=== PATIENT | male | born 1975 | race American Indian/Alaskan Native ===

== ENCOUNTER 2019-04-17 09:54 | Inpatient (IN) | payer OTHER ==
[2019-04-17 09:56] VITALS: BMI 33.1
[2019-04-17 11:52] LABS: BASO % 0.7 % (0.0-2.0); EOS # 0.1 K/uL (0.0-0.7); EOS % 1.5 % (0.0-4.0); HEMOGLOBIN 14.8 g/dL (12.0-18.0); LYMPH # 2.3 K/uL (1.0-4.3); MEAN CELL VOLUME 94.4 fL (80.0-94.0); MEAN CORPUSCULAR HEMOGLOBIN 32.4 pg (27.0-31.0); MEAN CORPUSCULAR HGB CONC 34.3 g/dL (33.0-37.0); MEAN PLATELET VOLUME 8.3 fL (7.2-11.7); MONO # 0.3 K/uL (0.0-0.8); MONO % 6.2 % (0.0-10.0); NEUT # 2.7 K/uL (1.8-7.0); NEUT % 49.6 % (50.0-75.0); NRBC % 0.1 % (0.0-2.0); RBC 4.56 Mil/uL (4.40-5.90); RED CELL DISTRIBUTION WIDTH 15.2 % (11.5-14.5); WHITE BLOOD COUNT 5.4 K/uL (4.8-10.8)
[2019-04-17 11:54] LABS: URINE BILIRUBIN NEGATIVE (NEGATIVE); URINE BLOOD NEGATIVE (NEGATIVE); URINE CLARITY Clear (Clear); URINE COLOR Yellow (YELLOW); URINE GLUCOSE (UA) NORMAL (Normal); URINE LEUKOCYTE ESTERASE NEG Leu/uL (Negative); URINE PROTEIN NEGATIVE (NEGATIVE); URINE UROBILINOGEN NORMAL mg/dL (0.2-1.0)
[2019-04-17 12:04] LABS: ALB/GLOB RATIO 1.6 (1.0-2.1); ALBUMIN 4.7 g/dL (3.5-5.0); ALT/SGPT 57 U/L (21-72); AST/SGOT 46 U/L (17-59); BLOOD UREA NITROGEN 15 mg/dL (9-20); CALCIUM 9.9 mg/dl (8.6-10.4); GFR NON-AFRICAN AMERICAN > 60
[2019-04-17 12:15] LABS: BARBITURATES, UR NEGATIVE (NEGATIVE); BENZODIAZEPINES, UR NEGATIVE (NEGATIVE); PHENCYCLIDINE, UR NEGATIVE (NEGATIVE)
[2019-04-17 12:44] LABS: OPIATES, UR POSITIVE (NEGATIVE)
[2019-04-17 14:51] VITALS: O2SAT 100
--- NOTE | 2019-04-17 15:16 | C.PDOC ---
History Of Present Illness 44 y/o male, with history of bipolar disorder, presents to ED stating he posted a message on [employer] [place] with a questionable homicidal post. Pt states that he has also been hearing voices. Reports his brother recently. Police was called and told him to come here to get help. He does admit to homicidal ideation but no SI. Time Seen by Provider: 04/17/19 10:12 Chief Complaint (Nursing): Psychiatric Evaluation History Per: Patient History/Exam Limitations: no limitations Onset/Duration Of Symptoms: Hrs Current Symptoms Are (Timing): Still Present Past Medical History Reviewed: Historical Data, Nursing Documentation, Vital Signs Vital Signs: Last Vital Signs Temp 97.9 F 04/17/19 14:50 Pulse 80 04/17/19 14:50 Resp 19 04/17/19 14:50 BP 133/90 04/17/19 14:50 Pulse Ox 100 04/17/19 14:50 Primary Care Provider: FAMILY PROVIDER,NO - Medical History PMH: Bipolar Disorder, Depression, HTN, Sleep Apnea Family History: States: No Known Family Hx - Social History Hx Tobacco Use: Yes Hx Alcohol Use: No Hx Substance Use: Yes - Immunization History Hx Tetanus Toxoid Vaccination: Yes Hx Influenza Vaccination: No Hx Pneumococcal Vaccination: No Review Of Systems Except As Marked, All Systems Reviewed And Found Negative. Constitutional: Negative for: Fever, Chills Psych: Positive for: Other (Homicidal ideation). Negative for: Psychosis, Suicidal ideation Physical Exam - Physical Exam Appears: Non-toxic, No Acute Distress Skin: Warm, Dry, No Rash Head: Atraumatic, Normacephalic Eye(s): bilateral: Normal Inspection, PERRL, EOMI Oral Mucosa: Moist Throat: No Erythema, No Exudate Neck: Normal ROM, Supple Chest: Symmetrical, No Tenderness Cardiovascular: Rhythm Regular, No Friction Rub, No Murmur Respiratory: Normal Breath Sounds, No Rhonchi, No Wheezing Gastrointestinal/Abdominal: Soft, No Tenderness Extremity: Normal ROM, No Tenderness, No Swelling Extremity: Bilateral: Atraumatic, Normal ROM Neurological/Psych: Oriented x3, Normal Speech ED Course And Treatment - Laboratory Results Result Diagrams: 04/17/19 11:40 04/17/19 11:40 Lab Results: Total Bilirubin 0.5 mg/dL (0.2-1.3) 04/17/19 11:40 AST 46 U/L (17-59) 04/17/19 11:40 ALT 57 U/L (21-72) 04/17/19 11:40 Alkaline Phosphatase 94 U/L (38-126) 04/17/19 11:40 Total Protein 7.6 g/dL (6.3-8.3) 04/17/19 11:40 Albumin 4.7 g/dL (3.5-5.0) 04/17/19 11:40 Globulin 2.9 gm/dL (2.2-3.9) 04/17/19 11:40 Albumin/Globulin Ratio 1.6 (1.0-2.1) 04/17/19 11:40 Urine Color Yellow (YELLOW) 04/17/19 11:40 Urine Clarity Clear (Clear) 04/17/19 11:40 Urine pH 5.0 (5.0-8.0) 04/17/19 11:40 Ur Specific [place] 1.024 (1.003-1.030) 04/17/19 11:40 Urine Protein Negative mg/dL (NEGATIVE) 04/17/19 11:40 Urine Glucose (UA) Normal mg/dL (Normal) 04/17/19 11:40 Urine Ketones Negative mg/dL (NEGATIVE) 04/17/19 11:40 Urine Blood Negative (NEGATIVE) 04/17/19 11:40 Urine Nitrate Negative (NEGATIVE) 04/17/19 11:40 Urine Bilirubin Negative (NEGATIVE) 04/17/19 11:40 Urine Urobilinogen Normal mg/dL (0.2-1.0) 04/17/19 11:40 Ur Leukocyte Esterase Neg [place]/uL (Negative) 04/17/19 11:40 Urine WBC (Auto) < 1 /hpf (0-5) 04/17/19 11:40 Urine RBC (Auto) < 1 /hpf (0-3) 04/17/19 11:40 O2 Sat by Pulse Oximetry: 100 (RA) Pulse Ox Interpretation: Normal Medical Decision Making Medical Decision Making: Plan: --Labs --UA The patient is medically cleared Disposition - Disposition Disposition: HOSPITALIZED Disposition Time: 17:57 Condition: STABLE - POA Present On Arrival: None - Clinical Impression Clinical Impression: Schizoaffective disorder - PA / DEWAXER / Resident Statement / has reviewed & agrees with the documentation as recorded. - Scribe Statement The provider has reviewed the documentation as recorded by the Scribe Claire Novak All medical record entries made by the Bayronibumberto were at my direction and personally dictated by me. I have reviewed the chart and agree that the record accurately reflects my personal performance of the history, physical exam, medical decision making, and the department course for this patient. I have also personally directed, reviewed, and agree with the discharge instructions and disposition.
--- NOTE | 2019-04-17 20:18 | PCM.BM ---
<Stefano Mosqueda - Last Filed: 04/17/19 20:16> Treatment Plan Problems - Problems identified on initial assessmt auditory hallucinations Date Initiated: 04/17/19 Time Initiated: 20:16 Assessment reference: NA Status: Active altered thought process Date Initiated: 04/17/19 Time Initiated: 20:18 Assessment reference: NA Status: Active ineffective family coping: compromised Date Initiated: 04/17/19 Time Initiated: :19 Assessment reference: NA Status: Active Treatment assets and liabiliti Patient Assests: cooperative, educated, self-reliant, ADL independent, good support system, good interpersonal skills Patient Liabilities: relationship conflicts - Milieu Protocol Maintain good personal hygiene: daily Encourage regular showers, daily Remind patient to perform daily oral care, daily Assist patient to perform ADL's Conduct patient checks and document Observation sheet: Q15 minutes Maintain personal safety: every shift Educate patient to report safety concerns to staff, every shift Monitor environment for contraband/sharps Medication safety: Monitor for expected outcome, potential side effects: every shift, Assess barriers to learning: every shift, Assess readiness for medication education: every shift <Tim Garcia - Last Filed: 04/19/19 10:54> - Diagnosis (1) Schizoaffective disorder Status: Acute Interventions: 04/19/19 10:53 * Assess/adjust medications daily and /or as needed * See patient on an individual basis 7x/week to assess status of hallucinations * Discuss risks, benefits, side effects and alternatives of medications * (2) Cannabis use disorder, severe, dependence Status: Acute Interventions: 04/19/19 10:54 * Assess 7x/week regarding severity of withdrawal * Educate regarding risks, benefits, side effects and alternatives of medications * Use Motivational Interviewing for abstinence * Use CBT for relapse prevention * Medication management for withdrawal symptoms * Encourage medication assisted treatment * <Emilia Lassiter - Last Filed: 04/19/19 12:34> Family Contact Family involvement: Family/SO is involved Family contact: Patient declines to allow family contact at present - Goals for Treatment Patient goals for treatment: "I don't know." Discharge/Continuing Care - Education Needs Education Needs: Patient Medication, Patient Coping Skills - Discharge Discharge Criteria: Tolerates medication w/o severe side effects, Reduction of target symptoms Discharge to:: Home - Treatment Team Participation Discussed with Family/SO: No Was Patient/Family/SO present at Treatment Team Meeting: Yes
--- NOTE | 2019-04-18 11:05 | PCM.PSYCH ---
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 Patient appears very disorganized and internally preoccupied throughout the interview. He reported that he called the police yesterday to explain that somebody has inflicted psychological harm on him. Patient remained internally preoccupied and he was responding to internal stimuli throughout the interview. He continued to have loose associations. He reports that he is very disappointed and on his sister's and he has homicidal ideation towards him. Patient reported that he does not have a plan for hurting his two sisters and their daughters and his cousins. When asked the reason, he stated that they are working together to fraudently obtain money from his brother's life insurance. He reports history of multiple inpatient psychiatric hospitalizations. He also reports history of follow-up with a psychiatrist, last follow-up was more than 5 years ago. He reports that he is done with his medications he does not want to take medication because his medications have changed his body. He is very paranoid and delusional throughout the interview. He reports that he noticed that 'the black cars are laughing at him.' He believes that, his family is doing the Medicaid fraud.' Patient also expressed that he made specific comments on Facebook that were not appropriate including "I would have an entire army rape you until your vaginas and your colons fell out." Patient expressed that he felt "I was losing touch with reality." He reports racing thoughts, irritability, agitation, and anger. He also reports at times depressed mood, feelings of hopelessness and helplessness, poor sleep and poor appetite. Urine toxicology was positive for cannabinoids, amphetamines, and opiods. However patient admits of abusing only marijuana. Past medical history Sleep apnea, HTN, arthritis. Current Medications: Active Medications Generic Name Dose Route Start Last Admin Trade Name Freq PRN Reason Stop Dose Admin Hydroxyzine HCl 25 mg 04/17/19 18:51 04/17/19 23:34 Atarax PO 25 mg Q6 PRN Administration Anxiety Ibuprofen 600 mg 04/17/19 19:01 Motrin Tab PO Q6H PRN Pain, moderate (4-7) Trazodone HCl 50 mg 04/17/19 18:55 04/17/19 23:34 Desyrel PO 50 mg HS PRN Administration Sleep Past Psychiatric History - Past Psychiatric History Previous Treatment History: Inpatient Pertinent Medical Hx (Current Medical&Sleep Prob, Allergies): Allergies Allergy/AdvReac Type Severity Reaction Status Date / Time iodine Allergy Verified 04/17/19 10:10 SEAFOOD Allergy Uncoded 04/17/19 10:10 QUEtiapine [SEROquel] 200 mg PO HS 10/17/15 Ibuprofen [Motrin Tab] 600 mg PO Q8 #30 tab 08/05/16 Lidocaine 5% [Lidoderm] 1 patch TP DAILY #30 patch 08/05/16 diaZEpam [Valium] 2 mg PO TID #15 tab 08/05/16 oxyCODONE/Acetaminophen [Percocet 5/325 mg Tab] 1 tab PO QID PRN #20 tab 08/05/16 Review of Systems - Review of Systems All systems: reviewed and no additional remarkable complaints except - Psychiatric Psychiatric: Anxiety, Auditory Hallucinations, Homicidal Ideation, Irritability, Paranoia Mental Status Examination - Personal Presentation Personal Presentation: Looks stated age - Affect Affect: Broad - Motor Activity Motor Activity: Psychomotor Agitation - Reliability in Providing Information Reliability in Providing Information: Poor, due to alteration in thoughts, Poor, due to altered mood - Speech Speech: Disorganized - Mood Mood: Anxious - Formal Thought Process Formal Thought Process: Hallucinations, Delusions, Paranoia, Loosening of associations, Flight of ideas, Circumstantial - Hallucinations/Delusions Hallucinations: Visual, Auditory Delusions: Persecution - Obsessions/Compulsions Obsessions: No Compulsions: No - Cognitive Functions Orientation: Person, Place, Situation, Time Sensorium: Alert Attention/Concentration: Attentive Abstract Thinking: [place] Estimate of Intelligence: Below average Judgement: Imparied, as evidence by: Poor judgement, Imparied, as evidence by: Lack of insight into illness - Risk Risk: Homicidal, Diminished functioning - Strength & Assets Inventory Strength & Assets Inventory: Family support DSM 5 DX - DSM 5 DSM 5 Diagnosis: Schizo affective disorder bipolar type Opioid use disorder mild Cannabis use disorder severe - Recommended/Plan of Treatment Treatment Recommendations and Plan of Treatment: Schizo affective disorder bipolar type Opioid use disorder mild Cannabis use disorder severe CBT Psychoeducation and supportive therapy and group therapy Prolixin for psychosis Cogentin for EPS Depakote for the mood stabilization Trazodone for insomnia Ativan for severe anxiety Hydroxyzine for anxiety Klonopin for agitation
[2019-04-18] MEDS: Divalproex 250 mg DR Tab PO SCH (17:09)
--- NOTE | 2019-04-19 10:52 | PCM.PYCHPN ---
Psychiatric Progress Note - Psychiatric Progress Note Patient seen today, length of contact: 15 min Patient Chief Complaint: I have thoughts of hurting my family.' Problems Identified/Issues Discussed: Patient was seen and evaluated, chart reviewed and discussed the staff. As per staff patient remain isolative and withdrawn. He remained disorganized and internally preoccupied. He still appears disheveled and unkempt. He continues to have loose associations and paranoia. He is taking selective medications and denies any side effects. He needs to stay longer for the stabilization of the symptoms. Supportive therapy was provided Medication Change: Yes Medical Record Reviewed: Yes Mental Status Examination - Cognitive Function Orientation: Person, Place, Situation, Time Memory: Intact Attention: WNL Concentration: Poor Association: Loose Fund of Knowledge: Poor - Mood Mood: Anxious - Affect Affect: Broad - Speech Speech: Pressured - Formal Thought Process Formal Thought Process: Hallucinations, Delusions, Paranoia, Loosening of associations, Flight of ideas, Circumstantial - Suicidal Ideation Suicidal Ideation: No - Homicidal Ideation Homicidal Ideation: No Goal/Treatment Plan - Goal/Treatment Plan Need for Continued Stay: Remain at risks for inpatient hospitalization Progress Toward Problem(s) and Goals/Treatment Plan: Schizo affective disorder bipolar type Opioid use disorder mild Cannabis use disorder severe CBT Psychoeducation and supportive therapy and group therapy Prolixin for psychosis Cogentin for EPS Depakote for the mood stabilization Trazodone for insomnia Ativan for severe anxiety Hydroxyzine for anxiety Klonopin for agitation
[2019-04-19] MEDS: Divalproex 250 mg DR Tab PO SCH ×2 (11:00→17:18)
[2019-04-20 06:05] VITALS: RESP 18
[2019-04-20] MEDS: Divalproex 250 mg DR Tab PO SCH (09:02)
[2019-04-21 06:08] VITALS: BP 101/67; PULSE 64; TEMP 97.5
--- NOTE | 2019-04-21 09:47 | PCM.PYCHDC ---
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 Patient appears very disorganized and internally preoccupied throughout the interview. He reported that he called the police yesterday to explain that somebody has inflicted psychological harm on him. Patient remained internally preoccupied and he was responding to internal stimuli throughout the interview. He continued to have loose associations. He reports that he is very disappointed and on his sister's and he has homicidal ideation towards him. Patient reported that he does not have a plan for hurting his two sisters and their daughters and his cousins. When asked the reason, he stated that they are working together to fraudently obtain money from his brother's life insurance. He reports history of multiple inpatient psychiatric hospitalizations. He also reports history of follow-up with a psychiatrist, last follow-up was more than 5 years ago. He reports that he is done with his medications he does not want to take medication because his medications have changed his body. He is very p aranoid and delusional throughout the interview. He reports that he noticed that 'the black cars are laughing at him.' He believes that, his family is doing the Medicaid fraud.' Patient also expressed that he made specific comments on Facebook that were not appropriate including "I would have an entire army rape you until your vaginas and your colons fell out." Patient expressed that he felt "I was losing touch with reality." He reports racing thoughts, irritability, agitation, and anger. He also reports at times depressed mood, feelings of hopelessness and helplessness, poor sleep and poor appetite. Urine toxicology was positive for cannabinoids, amphetamines, and opiods. However patient admits of abusing only marijuana. Consultations:: List each consultation separately and include: 1. Reason for request. 2. Findings. 3. Follow-up Summary of Hospital Course include:: 1. Description of specific treatment plan utilized for patients during their course of treatmen. 2. Summarize the time- course for resolution of acute symptoms and/or regressed behaviors. 3. Describe issues identified and worked on during hospitalization. 4. Describe medication utilized. 5. Describe medical problems identified and treated. 6. 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 Patient appears very disorganized and internally preoccupied throughout the interview. He reported that he called the police yesterday to explain that somebody has inflicted psychological harm on him. Patient remained internally preoccupied and he was responding to internal stimuli throughout the interview. He continued to have loose associations. He reports that he is very disappointed and on his sister's and he has homicidal ideation towards him. Patient reported that he does not have a plan for hurting his two sisters and their daughters and his cousins. When asked the reason, he stated that they are working together to fraudently obtain money from his brother's life insurance. He reports history of multiple inpatient psychiatric hospitalizations. He also reports history of follow-up with a psychiatrist, last follow-up was more than 5 years ago. He reports that he is done with his medications he does not want to take medication because his medications have changed his body. He is very paranoid and delusional throughout the interview. He reports that he noticed that 'the black cars are laughing at him.' He believes that, his family is doing the Medicaid fraud.' Patient also expressed that he made specific comments on Facebook that were not appropriate including "I would have an entire army rape you until your vaginas and your colons fell out." Patient expressed that he felt "I was losing touch with reality." He reports racing thoughts, irritability, agitation, and anger. He also reports at times depressed mood, feelings of hopelessness and helplessness, poor sleep and poor appetite. Urine toxicology was positive for cannabinoids, amphetamines, and opiods. However patient admits of abusing only marijuana. Past medical history Sleep apnea, HTN, arthritis. - Diagnosis (1) Schizoaffective disorder Current Visit: Yes Status: Acute (2) Cannabis use disorder, severe, dependence Current Visit: Yes Status: Acute - Final Diagnosis (DSM 5) Condition upon Discharge: STABLE DSM 5: Schizo affective disorder bipolar type Opioid use disorder mild Cannabis use disorder severe Disposition: HOME/ ROUTINE Follow-up Treatment Plan: Schizo affective disorder bipolar type Opioid use disorder mild Cannabis use disorder severe CBT Psychoeducation and supportive therapy and group therapy Prolixin for psychosis Cogentin for EPS Depakote for the mood stabilization Trazodone for insomnia Ativan for severe anxiety Hydroxyzine for anxiety Klonopin for agitation Prescriptions/Medication Reconciliation: Benztropine [Cogentin] 1 mg PO BID #60 tab fluPHENAZine [Prolixin] 10 mg PO BID #60 tab traZODone [Desyrel] 100 mg PO HS PRN #30 tab PRN Reason: Sleep - Smoking Cessation Smoking Cessation Medication prescribed: No - Antipsychotic Medications Pt discharged on 2 or more routine antipsychotic medications: No
== END 2019-04-21 10:08 | disposition home or self-care (01) | DRG 885 ==
LOC: C.ER 09:54 → C.5E 16:43
PROVIDERS: ADMIT Psychiatry & Neurology Psychiatry; ATTEND Psychiatry & Neurology Psychiatry
PROC: GZHZZZZ Group Psychotherapy (ICD-10-PCS; principal; 2019-04-17)
PROC: HZ52ZZZ Individual Psychotherapy for Substance Abuse Treatment, Cognitive-Behavioral (ICD-10-PCS; 2019-04-17)
PROC: HZ59ZZZ Individual Psychotherapy for Substance Abuse Treatment, Supportive (ICD-10-PCS; 2019-04-17)
PROC: HZ56ZZZ Individual Psychotherapy for Substance Abuse Treatment, Psychoeducation (ICD-10-PCS; 2019-04-17)
PROC: HZ42ZZZ Group Counseling for Substance Abuse Treatment, Cognitive-Behavioral (ICD-10-PCS; 2019-04-17)
PROC: HZ46ZZZ Group Counseling for Substance Abuse Treatment, Psychoeducation (ICD-10-PCS; 2019-04-17)
PROC: GZ58ZZZ Individual Psychotherapy, Cognitive-Behavioral (ICD-10-PCS; 2019-04-17)
PROC: GZ56ZZZ Individual Psychotherapy, Supportive (ICD-10-PCS; 2019-04-17)
DX: F25.0 Schizoaffective disorder, bipolar type (principal); R45.850 Homicidal ideations; F12.20 Cannabis dependence, uncomplicated; F11.10 Opioid abuse, uncomplicated; F41.9 Anxiety disorder, unspecified; G47.00 Insomnia, unspecified; G47.30 Sleep apnea, unspecified; I10 Essential (primary) hypertension; Z87.891 Personal history of nicotine dependence

== ENCOUNTER 2019-04-28 23:33 | Emergency (ER) | payer OTHER ==
[2019-04-28 23:34] VITALS: BMI 33.1
[2019-04-28 23:49] VITALS: BP 129/91; PULSE 74; TEMP 98.2; O2SAT 97
[2019-04-29] MEDS ORDERED: Lidocaine 5% Patch TD STA
[2019-04-29] MEDS ORDERED: Lidocaine 5% Patch TD ONE (00:05)
--- NOTE | 2019-04-29 00:05 | C.PDOC ---
Time Seen by Provider: 04/28/19 23:54 Chief Complaint (Nursing): Hip Pain Past Medical History Vital Signs: Last Vital Signs Temp 98.2 F 04/28/19 23:38 Pulse 74 04/28/19 23:38 Resp 16 04/28/19 23:38 BP 129/91 H 04/28/19 23:38 Pulse Ox 97 04/28/19 23:38 Primary Care Provider: Leonarda Lott - Medical History PMH: Bipolar Disorder, Depression, HIV (+ HIV), HTN, Sexually Transmitted Disease, Sleep Apnea Denies: Diabetes, Hepatitis, Seizures - [facility] Procedures [facility] FOR SUBSTANCE ABUSE TREATMENT, PSYCHOEDUCATION (04/17/19) GROUP RN HOSPITAL FOR SUBSTANCE ABUSE, COGNITIVE BEHAVIORAL (04/17/19) GROUP PSYCHOTHERAPY (04/17/19) INDIV PSYCHOTHERAPY FOR SUBSTANCE ABUSE TREATMENT, SUPPORT (04/17/19) INDIV PSYCHOTHERAPY FOR SUBSTANCE ABUSE, COGNITIV BEHAVIORAL (04/17/19) INDIV PSYCHOTHERAPY FOR SUBSTANCE ABUSE, PSYCHOEDUCATION (04/17/19) INDIVIDUAL PSYCHOTHERAPY, COGNITIVE-BEHAVIORAL (04/17/19) INDIVIDUAL PSYCHOTHERAPY, SUPPORTIVE (04/17/19) - Social History Hx Tobacco Use: Yes Hx Alcohol Use: Yes Hx Substance Use: Yes - Immunization History Hx Tetanus Toxoid Vaccination: Yes Hx Influenza Vaccination: No Hx Pneumococcal Vaccination: No ED Course And Treatment O2 Sat by Pulse Oximetry: 97 Disposition - Disposition
--- NOTE | 2019-04-29 00:18 | C.PDOC ---
History Of Present Illness 44 y/o male comes to ed for left hip pain with known diagnosis via mri on 04/15/19 of labrum tear. pt sts 'i want surgery'. I explained that he needs to be seen by an orthopedist for that, but can give him something for pain. Time Seen by Provider: 04/28/19 23:54 Chief Complaint (Nursing): Hip Pain Past Medical History Vital Signs: Last Vital Signs Temp 98.2 F 04/28/19 23:38 Pulse 74 04/28/19 23:38 Resp 16 04/28/19 23:38 BP 129/91 H 04/28/19 23:38 Pulse Ox 97 04/28/19 23:38 Primary Care Provider: Leonarda Lott - Medical History PMH: Bipolar Disorder, Depression, HIV (+ HIV), HTN, Sexually Transmitted Disease, Sleep Apnea Denies: Diabetes, Hepatitis, Seizures - [facility] Procedures GROUP [facility] FOR SUBSTANCE ABUSE TREATMENT, PSYCHOEDUCATION (04/17/19) GROUP CONCERT [facility] FOR SUBSTANCE ABUSE, COGNITIVE BEHAVIORAL (04/17/19) GROUP PSYCHOTHERAPY (04/17/19) INDIV PSYCHOTHERAPY FOR SUBSTANCE ABUSE TREATMENT, SUPPORT (04/17/19) INDIV PSYCHOTHERAPY FOR SUBSTANCE ABUSE, COGNITIV BEHAVIORAL (04/17/19) INDIV PSYCHOTHERAPY FOR SUBSTANCE ABUSE, PSYCHOEDUCATION (04/17/19) INDIVIDUAL PSYCHOTHERAPY, COGNITIVE-BEHAVIORAL (04/17/19) INDIVIDUAL PSYCHOTHERAPY, SUPPORTIVE (04/17/19) Family History: States: Unknown Family Hx - Social History Hx Tobacco Use: Yes Hx Alcohol Use: Yes Hx Substance Use: Yes - Immunization History Hx Tetanus Toxoid Vaccination: Yes Hx Influenza Vaccination: No Hx Pneumococcal Vaccination: No Physical Exam - Physical Exam Appears: Non-toxic, No Acute Distress Skin: Warm, Dry Head: Atraumatic, Normacephalic Extremity: Normal ROM, Tenderness (left hip area), No Calf Tenderness Extremity: Left: [place]ony Point Tenderness, Painful To Bear Weight, Right: Hips Non- Tender, Bilateral: Normal Color And Temperature Neurological/Psych: Oriented x3, Normal Speech, Normal Cognition ED Course And Treatment O2 Sat by Pulse Oximetry: 97 Medical Decision Making Medical Decision Making: pt with labrum tear given analgesic and lidoderm pathc. has reduced pain, needs outpatient ortho f/u Disposition Counseled Patient/Family Regarding: Diagnosis, Need For Followup, Rx Given - Disposition Referrals: Ken Marcial III, MD [Staff Provider] - Abimael Kinney MD [Staff Provider] - Disposition: HOME/ ROUTINE Disposition Time: 00:26 Condition: GOOD Additional Instructions: Follow up with orthopedist and with pain management.l Take naproxen as prescribed with food. Remove patch in 12 hours. Prescriptions: Naproxen 500 mg PO BID #30 tab Instructions: Hip Bursitis (DC), Labral Tear of the Hip (DC) Forms: General Discharge Instructions, [facility] (Slovenian) - Clinical Impression Clinical Impression: Labral tear of left hip joint, Trochanteric bursitis of left hip
[2019-04-29 00:45] VITALS: RESP 20
== END 2019-04-29 00:44 | disposition home or self-care (01) ==
LOC: C.ER 23:33
DX: S73.102A Unspecified sprain of left hip, initial encounter (principal); X58.XXXA Exposure to other specified factors, initial encounter; M70.62 Trochanteric bursitis, left hip
CPT/HCPCS: 96372; 99284; J1885